=== PATIENT | female | born 1960 | race Caucasian/White ===

== ENCOUNTER 2018-12-31 14:32 | Inpatient (IN) | payer OTHER ==
[2018-12-31] MEDS ORDERED: DEXAMETHASONE SOD PHOSPHATE 10 MG/1 ML VIAL IM ONE (14:47)
--- NOTE | 2018-12-31 14:47 | PDOC ---
Rapid Medical Evaluation Chief Complaint: Allergic Reaction Time Seen by Provider: 12/31/18 14:40 Medical Evaluation: Allergies Allergy/AdvReac Type Severity Reaction Status Date / Time nortriptyline AdvReac Verified 12/31/18 14:41 12/31/18 14:43 I have performed a brief in-person evaluation of this patient. The patient presents with a chief complaint of: rash to right b/l forearms from mosquito bites last night which she believed is getting cellulitis of right forearm with pain to right distal forearm which started this AM. Denies fever, chills Pertinent physical exam findings: diffused urticatial circumferential rash to distal right forearm. multiple localized erythematouss rash to lateral aspect of left forearm I have ordered the following: Decadron IM The patient will proceed to the ED for further evaluation Discharge Disposition - Diagnosis Dermatitis - Discharge Dispostion Condition at time of disposition: Stable - Referrals - Patient Instructions - Post Discharge Activity
[2018-12-31] MEDS ORDERED: DEXAMETHASONE SOD PHOSPHATE 10 MG/1 ML VIAL ONE (14:53)
[2018-12-31] MEDS ORDERED: morphine CARPU-JECT 4 MG/1 ML DISP.SYRIN IVPUSH ONE (15:43)
[2018-12-31] MEDS ORDERED: CLINDAMYCIN 600MG PREMIX IVPB 600 MG/50 ML BAG IVPB ONE ×2 (15:43→15:59)
[2018-12-31] MEDS ORDERED: SODIUM CHLORIDE 1,000 ML IV STA (15:43)
--- NOTE | 2018-12-31 15:52 | PDOC ---
History of Present Illness - General Chief Complaint: Allergic Reaction Stated Complaint: RT. ARM CELLULITIS Time Seen by Provider: 12/31/18 14:40 History Source: Patient - History of Present Illness Occurred: reports: this morning Upper Extremity Pain Location: right: forearm, arm Past History - Past Medical History Allergies/Adverse Reactions: Allergies Allergy/AdvReac Type Severity Reaction Status Date / Time nortriptyline AdvReac Verified 12/31/18 14:41 Home Medications: Ambulatory Orders Duloxetine HCl [Cymbalta] 60 mg PO DAILY 12/31/18 Naproxen [EC-Naprosyn] 500 mg PO BID 12/31/18 Oxycodone HCl/Acetaminophen [Percocet 10-325 mg Tablet] 1 tab PO TID PRN Cancer: Yes (breast) COPD: No Psychiatric Problems: Yes (depression) - Surgical History Abdominal Surgery: Yes (ovarian) - Suicide/Smoking/Psychosocial Hx Smoking History: Never smoked Review of Systems - Review of Systems Constitutional: No: Chills, Fever, Malaise, Weakness *Physical Exam - Vital Signs Last Vital Signs Temp Pulse Resp BP Pulse Ox 98.7 F 90 18 151/75 99 12/31/18 14:45 12/31/18 14:45 12/31/18 14:45 12/31/18 14:45 12/31/18 14:45 - Physical Exam General Appearance: Yes: Appropriately Dressed. No: Apparent Distress HEENT: positive: Normal Voice Neck: positive: Supple. negative: Lymphadenopathy (R), Lymphadenopathy (L) Respiratory/Chest: negative: Respiratory Distress Extremity: positive: Other (circumferential blanching erythema to R forearm extending into axilla, warm and ttp, no crepitus/blisters, LUE w/ 2-3 large hive like lesions) Integumentary: positive: Dry, Warm Neurologic: positive: Fully Oriented, Alert, Normal Mood/Affect ED Treatment Course - LABORATORY CBC & Chemistry Diagram: 12/31/18 15:55 12/31/18 15:55 - Medications Given in the ED: ED Medications Discontinued Medications Generic Name Dose Route Start Last Admin Trade Name Freq PRN Reason Stop Dose Admin Dexamethasone Sodium Phosphate 10 mg 12/31/18 14:47 12/31/18 15:35 Decadron Injection - IM 12/31/18 14:48 10 mg ONCE ONE Administration Medical Decision Making - Medical Decision Making 12/31/18 15:45 58-year-old female, history of breast cancer s/p R mastectomy with chemo/ radiation over 20 years ago, in remission since, recurrent cellulitis usually due to insect bites per patient, sepsis, here with redness and pain to entire right forearm that patient noticed this a.m that has since spread to R arm. States she sustained insect bites last night, mostly to b/l UEs. Denies any malaise, fever or chills. Also has multiple areas of redness, swelling and itching to L arm. Given dose of IM steroids in triage. No resp sxs or angioedema See exam RUE cellulitis Possible due to insect bites given hx No systemic sxs Exam remarkable for diffuse circumferential blanching erythema to R forearm/arm extending into axilla -labs -pain control -IV abx -admit 12/31/18 15:53 Case d/w Dr Ko and pt admitted *DC/Admit/Observation/Transfer Diagnosis at time of Disposition: Cellulitis Qualifiers: Site of cellulitis: extremity Site of cellulitis of extremity: upper extremity Laterality: right Qualified Code(s): L03.113 - Cellulitis of right upper limb - Discharge Dispostion Condition at time of disposition: Stable Decision to Admit order: Yes - Referrals - Patient Instructions - Post Discharge Activity
[2018-12-31] MEDS ORDERED: morphine SULFATE 4 MG/ML VIAL ONE (15:59)
[2018-12-31 16:28] LABS: BASO % 0.4 % (0-2.0); EOS % 0.8 % (0-4.5); HEMATOCRIT 36.5 % (32.4-45.2); HEMOGLOBIN 12.4 GM/dL (10.7-15.3); LYMPH % 14.4 % (8-40); MCH 32.8 pg (25.7-33.7); MEAN CELL VOLUME 96.2 fl (80-96); MEAN PLT VOLUME 9.9 fl (7.5-11.1); NEUT % 77.4 % (42.8-82.8); PLATELET COUNT 152 K/MM3 (134-434); RBC 3.79 M/mm3 (3.60-5.2); RDW 13.7 % (11.6-15.6); WHITE BLOOD COUNT 3.5 K/mm3 (4.0-10.0)
--- NOTE | 2018-12-31 16:53 | PDOC ---
*Physical Exam - Vital Signs Last Vital Signs Temp Pulse Resp BP Pulse Ox 98.7 F 90 18 151/75 99 12/31/18 14:45 12/31/18 14:45 12/31/18 14:45 12/31/18 14:45 12/31/18 14:45 ED Treatment Course - LABORATORY CBC & Chemistry Diagram: 12/31/18 15:55 12/31/18 15:55 - ADDITIONAL ORDERS Additional order review: Laboratory Results 12/31/18 15:55 Lactic Acid 1.2 12/31/18 15:55 RBC 3.79 MCV 96.2 H MCHC 34.0 RDW 13.7 MPV 9.9 Neutrophils % 77.4 Lymphocytes % 14.4 Monocytes % 7.0 Eosinophils % 0.8 Basophils % 0.4 - Medications Given in the ED: ED Medications Discontinued Medications Generic Name Dose Route Start Last Admin Trade Name Freq PRN Reason Stop Dose Admin Dexamethasone Sodium Phosphate 10 mg 12/31/18 14:47 12/31/18 15:35 Decadron Injection - IM 12/31/18 14:48 10 mg ONCE ONE Administration Clindamycin Phosphate 600 mg in 50 mls @ 100 mls/hr 12/31/18 15:43 12/31/18 16:08 Cleocin 600 Mg Premix Ivpb - IVPB 12/31/18 16:12 100 mls/hr ONCE ONE Administration Protocol Sodium Chloride 1,000 mls @ 1,000 mls/hr 12/31/18 15:43 12/31/18 16:09 Normal Saline - IV 12/31/18 16:42 1,000 mls/hr ASDIR STA Administration Morphine Sulfate 4 mg 12/31/18 15:43 12/31/18 16:09 Morphine Injection - IVPUSH 12/31/18 15:44 4 mg ONCE ONE Administration Medical Decision Making - Medical Decision Making 12/31/18 16:22 Patient received from fast track for admission. Patient with recurrent cellulitis requiring IV antibiotics. Patient with history of cancer currently in remission *DC/Admit/Observation/Transfer Diagnosis at time of Disposition: Cellulitis Qualifiers: Site of cellulitis: extremity Site of cellulitis of extremity: upper extremity Laterality: right Qualified Code(s): L03.113 - Cellulitis of right upper limb - Discharge Dispostion Condition at time of disposition: Stable - Referrals - Patient Instructions - Post Discharge Activity
[2018-12-31 16:56] LABS: ALBUMIN 4.4 g/dl (3.4-5.0); BILIRUBIN,TOTAL 0.6 mg/dL (0.2-1); BLOOD UREA NITROGEN 16.4 mg/dL (7-18); CALCIUM 9.2 mg/dL (8.5-10.1); CREATININE 0.8 mg/dL (0.55-1.3); POTASSIUM 3.8 mmol/L (3.5-5.1); TOT PROT 7.3 g/dl (6.4-8.2)
--- NOTE | 2018-12-31 19:37 | HP ---
Admitting History and Physical - Primary Care Physician PCP: Cha Ko - Admission History of Present Illness: 58-year-old female, history of breast cancer s/p R mastectomy with chemo/ radiation over 20 years ago, in remission since, recurrent cellulitis usually due to insect bites per patient, sepsis, here with redness and pain to entire right forearm that patient noticed this a.m that has since spread to R arm. States she sustained insect bites last night, mostly to b/l UEs. - Smoking History Smoking history: Never smoked Home Medications - Allergies Allergies/Adverse Reactions: Allergies Allergy/AdvReac Type Severity Reaction Status Date / Time nortriptyline AdvReac Verified 12/31/18 14:41 - Home Medications Home Medications: Ambulatory Orders Docusate Sodium [Colace] 300 mg PO HS 12/31/18 Duloxetine HCl [Cymbalta] 60 mg PO DAILY 12/31/18 Melatonin 10 mg PO HS PRN 12/31/18 Naproxen [EC-Naprosyn] 500 mg PO BID 12/31/18 Oxycodone HCl/Acetaminophen [Percocet 10-325 mg Tablet] 1 tab PO TID PRN Physical Examination Vital Signs: Vital Signs Temperature 98.7 F 12/31/18 14:45 Pulse Rate 90 12/31/18 14:45 Respiratory Rate 18 12/31/18 14:45 Blood Pressure 151/75 12/31/18 14:45 O2 Sat by Pulse Oximetry (%) 99 12/31/18 14:45 Constitutional: Yes: No Distress HENT: Yes: Atraumatic Neck: Yes: Supple Cardiovascular: Yes: Regular Rate and Rhythm Respiratory: Yes: CTA Bilaterally Gastrointestinal: Yes: Normal Bowel Sounds Extremities: Yes: Other (cellulitis RUEx) Neurological: Yes: Alert, Oriented Labs: CBC, BMP 12/31/18 15:55 12/31/18 15:55 Imaging - Results X-ray: Report Reviewed Problem List - Problems (1) Cellulitis Assessment/Plan: iv abx id consult Code(s): L03.90 - CELLULITIS, UNSPECIFIED Qualifiers: Site of cellulitis: extremity Site of cellulitis of extremity: upper extremity Laterality: right Qualified Code(s): L03.113 - Cellulitis of right upper limb Assessment/Plan Laboratory Tests 12/31/18 12/31/1812/31/19 15:55 15:55 15:55 WBC 3.5 L RBC 3.79 Hgb 12.4 Hct 36.5 MCV 96.2 H MCH 32.8 MCHC 34.0 RDW 13.7 Plt Count 152 MPV 9.9 Absolute Neuts (auto) 2.7 Neutrophils % 77.4 Lymphocytes % 14.4 Monocytes % 7.0 Eosinophils % 0.8 Basophils % 0.4 Nucleated RBC % 0 Sodium 138 Potassium 3.8 Chloride 106 Carbon Dioxide 26 Anion Gap 6 L BUN 16.4 Creatinine 0.8 Est GFR (CKD-EPI)AfAm 94.19 Est GFR (CKD-EPI)NonAf 81.27 Random Glucose 104 Lactic Acid 1.2 Calcium 9.2 Total Bilirubin 0.6 AST 17 ALT 26 Alkaline Phosphatase 71 Total Protein 7.3 Albumin 4.4 Active Medications Generic Name Dose Route Start Last Admin Trade Name Freq PRN Reason Stop Dose Admin Acetaminophen 650 mg 12/31/18 19:39 01/01/19 17:15 Tylenol - PO 650 mg Q6H PRN Administration FEVER Docusate Sodium 300 mg 12/31/18 23:30 12/31/18 23:20 Colace - PO 300 mg HS MATILDE Administration Duloxetine HCl 60 mg 01/01/19 22:00 Cymbalta - PO HS MATILDE Heparin Sodium (Porcine) 5,000 unit 12/31/18 22:00 01/01/19 09:37 Heparin - SQ 5,000 unit BID MATILDE Administration Piperacillin Sod/Tazobactam 50 mls @ 100 mls/hr 01/01/19 18:00 01/01/19 17:14 Sod 3.375 gm/ Dextrose IVPB 100 mls/hr Q8H-IV MATILDE Administration Protocol Melatonin 10 mg 12/31/18 23:03 12/31/18 23:20 Melatonin PO 10 mg HS PRN Administration INSOMNIA Oxycodone HCl 10 mg 12/31/18 19:39 01/01/19 17:14 Roxicodone - PO 10 mg Q6H PRN Administration PAIN LEVEL 4 - 6
[2018-12-31] MEDS: oxyCODONE HCL 5 MG TABLET PO PRN (21:34)
[2018-12-31] MEDS: ACETAMINOPHEN 325 MG TABLET (FP) PO PRN (21:34)
[2018-12-31] MEDS: DOCUSATE SODIUM 100 MG CAPSULE (FP) PO SCH (23:20)
[2018-12-31] MEDS: MELATONIN 5 MG TABLETS PO PRN (23:20)
[2018-12-31] MEDS: HEPARIN NA (PORCINE) 5,000 UNITS/ML 1ML VIAL SQ SCH (23:28)
[2018-12-31] MEDS ORDERED: PIPERACILLIN/TAZOB 3.375 GM 3.375 GM in DEXTROSE 5%-WATER - 50 ML IVPB SCH (23:45)
[2019-01-01 00:12] VITALS: BMI 40.0
[2019-01-01] MEDS ORDERED: DEXTROSE 5%-WATER - 50 ML IVPB ONE ×3 (01:32→17:11)
[2019-01-01] MEDS ORDERED: PIPERACILLIN/TAZOBACTAM 3.375 GM VIAL IVPB ONE ×3 (01:32→17:11)
[2019-01-01] MEDS: PIPERACILLIN/TAZOB 3.375 GM 3.375 GM in DEXTROSE 5%-WATER - 50 ML IVPB SCH ×3 (01:35→17:14)
[2019-01-01] MEDS: ACETAMINOPHEN 325 MG TABLET (FP) PO PRN ×4 (03:41→23:20)
[2019-01-01] MEDS: oxyCODONE HCL 5 MG TABLET PO PRN ×4 (03:42→23:19)
[2019-01-01] MEDS ORDERED: ONDANSETRON 4 MG/2 ML VIAL IVPUSH ONE (07:30)
[2019-01-01 07:51] LABS: BASO % 0.4 % (0-2.0); HEMATOCRIT 33.3 % (32.4-45.2); HEMOGLOBIN 11.5 GM/dL (10.7-15.3); LYMPH % 13.3 % (8-40); MCHC 34.4 g/dl (32.0-36.0); MEAN PLT VOLUME 10.3 fl (7.5-11.1); MONO % 6.5 % (3.8-10.2); NEUT % 79.8 % (42.8-82.8); RBC 3.47 M/mm3 (3.60-5.2); RDW 13.6 % (11.6-15.6); WHITE BLOOD COUNT 3.7 K/mm3 (4.0-10.0)
[2019-01-01 08:43] LABS: ALBUMIN 3.6 g/dl (3.4-5.0); BILIRUBIN,TOTAL 0.5 mg/dL (0.2-1); BLOOD UREA NITROGEN 13.2 mg/dL (7-18); CALCIUM 8.9 mg/dL (8.5-10.1); CREATININE 0.6 mg/dL (0.55-1.3); POTASSIUM 3.9 mmol/L (3.5-5.1); TOT PROT 6.6 g/dl (6.4-8.2)
[2019-01-01] MEDS ORDERED: DULoxetine HCL 30 MG CAPSULE.DR PO ONE (09:15)
[2019-01-01] MEDS ORDERED: PT OWN MED DRAWER 7, Y5N ONE (09:15)
[2019-01-01 09:21] LABS: PLATELET COUNT 142 K/MM3 (134-434)
[2019-01-01] MEDS: HEPARIN NA (PORCINE) 5,000 UNITS/ML 1ML VIAL SQ SCH ×2 (09:37→21:24)
[2019-01-01] MEDS: DULoxetine HCL 60 MG CAPSULE.DR PO SCH ×2 (09:37→12:04)
--- NOTE | 2019-01-01 14:31 | CON.ID ---
Consult Consult Specialty:: infectious diseases Referred by:: Reason for Consultation:: rt arm cellulitis - History of Present Illness Chief Complaint: cellulitis of the rt arm History of Present Illness: 58-year-old female, history of breast cancer s/p R mastectomy with chemo/ radiation over 20 years ago, in remission since, recurrent cellulitis of the same arm multiple times showed the pictue from yesterday,arm much better than yesterday according to the notes the patient sustained the insect bites,though patient is not mentioning that to me currently feeling better - History Source History Provided By: Patient Limitations to Obtaining History: No Limitations - Alcohol/Substance Use Hx Alcohol Use: No - Smoking History Smoking history: Never smoked Home Medications - Allergies Allergies/Adverse Reactions: Allergies Allergy/AdvReac Type Severity Reaction Status Date / Time nortriptyline AdvReac Verified 12/31/18 14:41 - Home Medications Home Medications: Ambulatory Orders Docusate Sodium [Colace] 300 mg PO HS 12/31/18 Duloxetine HCl [Cymbalta] 60 mg PO DAILY 12/31/18 Melatonin 10 mg PO HS PRN 12/31/18 Naproxen [EC-Naprosyn] 500 mg PO BID 12/31/18 Oxycodone HCl/Acetaminophen [Percocet 10-325 mg Tablet] 1 tab PO TID PRN Review of Systems - Review of Systems Constitutional: reports: No Symptoms Eyes: reports: No Symptoms HENT: reports: No Symptoms Neck: reports: No Symptoms Cardiovascular: reports: No Symptoms Respiratory: reports: No Symptoms Gastrointestinal: reports: No Symptoms Genitourinary: reports: No Symptoms Musculoskeletal: reports: No Symptoms Integumentary: reports: Erythema (of the rt forerm) Neurological: reports: No Symptoms Endocrine: reports: No Symptoms Hematology/Lymphatic: reports: No Symptoms Psychiatric: reports: No Symptoms Physical Exam Vital Signs: Vital Signs Temperature 98.6 F 01/01/19 09:26 Pulse Rate 57 L 01/01/19 09:26 Respiratory Rate 18 01/01/19 09:26 Blood Pressure 135/77 01/01/19 09:26 O2 Sat by Pulse Oximetry (%) 95 12/31/18 21:00 Constitutional: Yes: Well Nourished, Calm, Mild Distress Cardiovascular: Yes: Regular Rate and Rhythm Respiratory: Yes: Regular, CTA Bilaterally Gastrointestinal: Yes: Normal Bowel Sounds, Soft Musculoskeletal: Yes: WNL Extremities: Yes: Erythema (rt arm), Other Neurological: Yes: Alert, Oriented Psychiatric: Yes: Alert, Oriented Labs: CBC, BMP 01/01/19 06:20 01/01/19 06:20 Imaging - Results Chest X-ray: Report Reviewed, Image Reviewed Assessment/Plan patient coming with cellulitis of the rt arm on the mastectomy side arm is improving patient received zosyn in the er will continue abx plan continue iv abx rest as per the team
--- NOTE | 2019-01-01 14:42 | EKG ---
Test Reason : Blood Pressure : / mmHG Vent. Rate : 091 BPM Atrial Rate : 091 BPM P-R Int : 140 ms QRS Dur : 100 ms QT Int : 406 ms P-R-T Axes : 023 -16 031 degrees QTc Int : 499 ms NORMAL SINUS RHYTHM VOLTAGE CRITERIA FOR LEFT VENTRICULAR HYPERTROPHY PROLONGED QT ABNORMAL ECG NO PREVIOUS ECGS AVAILABLE Confirmed by Faraz Wu MD ([id number]) on 01/01/2019 2:42:21 PM Referred By: Confirmed By:Faraz Wu MD
--- NOTE | 2019-01-01 18:34 | PN ---
Progress Note, Physician - Current Medication List Current Medications: Active Medications Acetaminophen (Tylenol -) 650 mg PO Q6H PRN PRN Reason: FEVER Last Admin: 01/01/19 17:15 Dose: 650 mg Docusate Sodium (Colace -) 300 mg PO HS MATILDE Last Admin: 12/31/18 23:20 Dose: 300 mg Duloxetine HCl (Cymbalta -) 60 mg PO HS MATILDE Heparin Sodium (Porcine) (Heparin -) 5,000 unit SQ BID MATILDE Last Admin: 01/01/19 09:37 Dose: 5,000 unit Piperacillin Sod/Tazobactam (Sod 3.375 gm/ Dextrose) 50 mls @ 100 mls/hr IVPB Q8H-IV MATILDE; Protocol Last Admin: 01/01/19 17:14 Dose: 100 mls/hr Melatonin (Melatonin) 10 mg PO HS PRN PRN Reason: INSOMNIA Last Admin: 12/31/18 23:20 Dose: 10 mg Oxycodone HCl (Roxicodone -) 10 mg PO Q6H PRN PRN Reason: PAIN LEVEL 4 - 6 Last Admin: 01/01/19 17:14 Dose: 10 mg - Objective Vital Signs: Vital Signs Temperature 97.9 F 01/01/19 14:00 Pulse Rate 79 01/01/19 14:00 Respiratory Rate 18 01/01/19 14:00 Blood Pressure 134/74 01/01/19 14:00 O2 Sat by Pulse Oximetry (%) 95 12/31/18 21:00 Constitutional: Yes: No Distress HENT: Yes: Atraumatic Neck: Yes: Supple Cardiovascular: Yes: Regular Rate and Rhythm Respiratory: Yes: CTA Bilaterally Gastrointestinal: Yes: Normal Bowel Sounds Extremities: Yes: Other (ruex cellulitis) Neurological: Yes: Alert, Oriented Labs: CBC, BMP 01/01/19 06:20 01/01/19 06:20 Problem List - Problems (1) Cellulitis Assessment/Plan: iv abx id consult Code(s): L03.90 - CELLULITIS, UNSPECIFIED Qualifiers: Site of cellulitis: extremity Site of cellulitis of extremity: upper extremity Laterality: right Qualified Code(s): L03.113 - Cellulitis of right upper limb
[2019-01-01] MEDS: DULoxetine HCL 30 MG CAPSULE.DR PO SCH (21:24)
[2019-01-01] MEDS: DOCUSATE SODIUM 100 MG CAPSULE (FP) PO SCH (21:24)
[2019-01-01] MEDS: MELATONIN 5 MG TABLETS PO PRN (21:28)
[2019-01-02] MEDS ORDERED: PIPERACILLIN/TAZOBACTAM 3.375 GM VIAL IVPB ONE ×3 (01:37→16:55)
[2019-01-02] MEDS ORDERED: DEXTROSE 5%-WATER - 50 ML IVPB ONE ×3 (01:37→16:55)
[2019-01-02] MEDS: PIPERACILLIN/TAZOB 3.375 GM 3.375 GM in DEXTROSE 5%-WATER - 50 ML IVPB SCH ×3 (01:47→17:15)
[2019-01-02] MEDS: oxyCODONE HCL 5 MG TABLET PO PRN ×3 (06:20→19:57)
[2019-01-02] MEDS: ACETAMINOPHEN 325 MG TABLET (FP) PO PRN ×3 (06:40→19:56)
[2019-01-02] MEDS: HEPARIN NA (PORCINE) 5,000 UNITS/ML 1ML VIAL SQ SCH ×2 (08:59→21:04)
[2019-01-02] MEDS ORDERED: ACETAMINOPHEN 325 MG TABLET (FP) PO PRN (12:53)
--- NOTE | 2019-01-02 14:24 | PN ---
Progress Note, Physician History of Present Illness: patient stable no new issues - Current Medication List Current Medications: Active Medications Acetaminophen (Tylenol -) 650 mg PO Q6H PRN PRN Reason: PAIN SCALE 4-6 Last Admin: 01/02/19 13:41 Dose: 650 mg Acetaminophen (Tylenol -) 650 mg PO Q6H PRN PRN Reason: FEVER Docusate Sodium (Colace -) 300 mg PO HS MATILDE Last Admin: 01/01/19 21:24 Dose: 300 mg Duloxetine HCl (Cymbalta -) 60 mg PO HS MATILDE Last Admin: 01/01/19 21:24 Dose: 60 mg Heparin Sodium (Porcine) (Heparin -) 5,000 unit SQ BID MATILDE Last Admin: 01/02/19 08:59 Dose: 5,000 unit Piperacillin Sod/Tazobactam (Sod 3.375 gm/ Dextrose) 50 mls @ 100 mls/hr IVPB Q8H-IV MATILDE; Protocol Last Admin: 01/02/19 08:59 Dose: 100 mls/hr Melatonin (Melatonin) 10 mg PO HS PRN PRN Reason: INSOMNIA Last Admin: 01/01/19 21:28 Dose: 10 mg Oxycodone HCl (Roxicodone -) 10 mg PO Q6H PRN PRN Reason: PAIN LEVEL 4 - 6 Last Admin: 01/02/19 13:41 Dose: 10 mg - Objective Vital Signs: Vital Signs Temperature 98.4 F 01/02/19 09:31 Pulse Rate 60 01/02/19 09:31 Respiratory Rate 20 01/02/19 09:31 Blood Pressure 144/73 01/02/19 09:31 O2 Sat by Pulse Oximetry (%) 98 01/02/19 09:00 Constitutional: Yes: No Distress, Calm Cardiovascular: Yes: Regular Rate and Rhythm Respiratory: Yes: Regular, CTA Bilaterally Gastrointestinal: Yes: Normal Bowel Sounds, Soft Musculoskeletal: Yes: WNL Extremities: Yes: Erythema (on the arm improving), Other Neurological: Yes: Alert, Oriented Psychiatric: Yes: Alert, Oriented Labs: CBC, BMP 01/01/19 06:20 01/01/19 06:20 Assessment/Plan patient coming with cellulitis of the rt arm on the mastectomy side arm is improving patient received zosyn in the er will continue abx plan continue iv abx rest as per the team will deescalte after tomorrow mornings dose to oral rest continue current mgmt
--- NOTE | 2019-01-02 18:23 | PN ---
Progress Note, Physician - Current Medication List Current Medications: Active Medications Acetaminophen (Tylenol -) 650 mg PO Q6H PRN PRN Reason: PAIN SCALE 4-6 Last Admin: 01/02/19 13:41 Dose: 650 mg Acetaminophen (Tylenol -) 650 mg PO Q6H PRN PRN Reason: FEVER Docusate Sodium (Colace -) 300 mg PO HS MATILDE Last Admin: 01/01/19 21:24 Dose: 300 mg Duloxetine HCl (Cymbalta -) 60 mg PO HS MATILDE Last Admin: 01/01/19 21:24 Dose: 60 mg Heparin Sodium (Porcine) (Heparin -) 5,000 unit SQ BID MATILDE Last Admin: 01/02/19 08:59 Dose: 5,000 unit Piperacillin Sod/Tazobactam (Sod 3.375 gm/ Dextrose) 50 mls @ 100 mls/hr IVPB Q8H-IV MATILDE; Protocol Last Admin: 01/02/19 17:15 Dose: 100 mls/hr Melatonin (Melatonin) 10 mg PO HS PRN PRN Reason: INSOMNIA Last Admin: 01/01/19 21:28 Dose: 10 mg Oxycodone HCl (Roxicodone -) 10 mg PO Q6H PRN PRN Reason: PAIN LEVEL 4 - 6 Last Admin: 01/02/19 13:41 Dose: 10 mg - Objective Vital Signs: Vital Signs Temperature 99.1 F 01/02/19 14:00 Pulse Rate 84 01/02/19 14:00 Respiratory Rate 20 01/02/19 14:00 Blood Pressure 121/57 L 01/02/19 14:00 O2 Sat by Pulse Oximetry (%) 98 01/02/19 09:00 Constitutional: Yes: No Distress HENT: Yes: Atraumatic Neck: Yes: Supple Cardiovascular: Yes: Regular Rate and Rhythm Respiratory: Yes: CTA Bilaterally Gastrointestinal: Yes: Normal Bowel Sounds Extremities: Yes: Other (cellulitis almost resolved) Neurological: Yes: Alert, Oriented Labs: CBC, BMP 01/01/19 06:20 01/01/19 06:20 Problem List - Problems (1) Cellulitis Assessment/Plan: iv abx will switch to po in am and dc home Code(s): L03.90 - CELLULITIS, UNSPECIFIED Qualifiers: Site of cellulitis: extremity Site of cellulitis of extremity: upper extremity Laterality: right Qualified Code(s): L03.113 - Cellulitis of right upper limb
[2019-01-02] MEDS: DOCUSATE SODIUM 100 MG CAPSULE (FP) PO SCH (21:04)
[2019-01-02] MEDS: MELATONIN 5 MG TABLETS PO PRN (21:04)
[2019-01-02] MEDS: DULoxetine HCL 30 MG CAPSULE.DR PO SCH (21:04)
[2019-01-03] MEDS ORDERED: DEXTROSE 5%-WATER - 50 ML IVPB ONE ×2 (01:01→08:53)
[2019-01-03] MEDS ORDERED: PIPERACILLIN/TAZOBACTAM 3.375 GM VIAL IVPB ONE ×2 (01:01→08:53)
[2019-01-03] MEDS: PIPERACILLIN/TAZOB 3.375 GM 3.375 GM in DEXTROSE 5%-WATER - 50 ML IVPB SCH ×2 (01:07→09:04)
[2019-01-03] MEDS: ACETAMINOPHEN 325 MG TABLET (FP) PO PRN ×2 (01:46→09:22)
[2019-01-03] MEDS: oxyCODONE HCL 5 MG TABLET PO PRN ×2 (01:47→09:23)
[2019-01-03] MEDS: HEPARIN NA (PORCINE) 5,000 UNITS/ML 1ML VIAL SQ SCH (09:03)
[2019-01-03 10:11] VITALS: BP 137/74; PULSE 72; TEMP 98.3
--- NOTE | 2019-01-03 19:49 | DS ---
Physical Examination Vital Signs: Vital Signs Temperature 98.3 F 01/03/19 10:10 Pulse Rate 72 01/03/19 10:10 Respiratory Rate 20 01/03/19 10:10 Blood Pressure 137/74 01/03/19 10:10 O2 Sat by Pulse Oximetry (%) 98 01/02/19 21:00 Constitutional: Yes: No Distress HENT: Yes: Atraumatic Neck: Yes: Supple Cardiovascular: Yes: Regular Rate and Rhythm Respiratory: Yes: CTA Bilaterally Gastrointestinal: Yes: Normal Bowel Sounds Extremities: Yes: WNL, Other (cellulits R arm almost resolved) Neurological: Yes: Alert, Oriented Labs: CBC, BMP 01/01/19 06:20 01/01/19 06:20 Discharge Summary Reason For Visit: CELLULITIS Condition: Stable - Instructions Disposition: HOME - Home Medications Comprehensive Discharge Medication List: Ambulatory Orders Docusate Sodium [Colace] 300 mg PO HS 12/31/18 Duloxetine HCl [Cymbalta] 60 mg PO DAILY 12/31/18 Melatonin 10 mg PO HS PRN 12/31/18 Naproxen [EC-Naprosyn] 500 mg PO BID 12/31/18 Oxycodone HCl/Acetaminophen [Percocet 10-325 mg Tablet] 1 tab PO TID PRN Amoxicillin/Potassium Clav [Augmentin 875-125 Tablet] 1 each PO BID #14 tablet 01/02/19 pr home
== END 2019-01-03 11:44 | disposition home or self-care (01) | DRG 383 ==
LOC: JERFT 14:32 → JER 14:32 → JERBED 15:55 → J5S 21:00
PROVIDERS: ADMIT Internal Medicine; ATTEND Internal Medicine
DX: L03.113 Cellulitis of right upper limb (principal); F32.9 Major depressive disorder, single episode, unspecified; S50.862A Insect bite (nonvenomous) of left forearm, initial encounter; S50.861A Insect bite (nonvenomous) of right forearm, initial encounter; Z85.3 Personal history of malignant neoplasm of breast; Z90.11 Acquired absence of right breast and nipple; W57.XXXA Bitten or stung by nonvenomous insect and other nonvenomous arthropods, initial encounter; Y93.89 Activity, other specified; Y92.89 Other specified places as the place of occurrence of the external cause; Y99.8 Other external cause status
CPT/HCPCS: 36415; 71046-TC-FY; 80053; 83605; 85025; 87040; 93005; 93010; 99282-25; J1100; J1644; J7030